=== PATIENT | female | born 1970 | race Hispanic/Latino ===

== ENCOUNTER 2017-10-07 00:50 | Emergency (ER) | payer BC, OTHER ==
[2017-10-07 01:14] LABS: #Basophils 0.1 thou/uL (0.0-0.2); #Eosinphils 0.1 thou/uL (0.0-0.7); #Lymphocytes 3.7 thou/uL (1.20-3.40); #Monocytes 0.9 thou/uL (0.11-0.59); %Eosinophils 1.1 % (0.0-10.0); %Lymphocytes 26.8 % (21.0-51.0); %Monocytes 6.2 % (0.0-10.0); %Neutrophils 64.9 % (42.0-75.0); Hemoglobin 14.8 g/dL (12.0-16.0); Mean Corpuscular HGB CONC 34.8 g/dL (32.0-36.0); Mean Corpuscular Hemoglobin 29.1 pg (27.0-31.0); Mean Corpuscular Volume 83.7 fl (81.0-99.0); Mean Platelet Volume 6.9 fL (7.4-10.4); Platelet Count 298 thou/uL (130-400); RBC Distribution Width 12.1 % (11.5-14.5); Red Blood Cell (RBC) Count 5.07 mill/uL (4.20-5.40); White Blood Cell (WBC) Count 13.9 thou/uL (4.8-10.8)
[2017-10-07] MEDS ORDERED: Ondansetron HCl/PF 4 MG/2 ML Vial ONE (01:19)
[2017-10-07 01:31] LABS: ALT (SGPT) 10 U/L (8-55); AST (SGOT) 7 U/L (5-34); Albumin 3.7 g/dL (3.5-5.0); Alkaline Phosphatase 93 U/L (40-150); Anion Gap 13 mmol/L (10-20); BUN (Urea Nitrogen) 17 mg/dL (7.0-18.7); Bilirubin, Total 0.3 mg/dL (0.2-1.2); CK (CPK) 11 U/L (29-168); Calc. Creatinine Clearance 0 mL/min (70-130); Calcium 9.9 mg/dL (7.8-10.44); Carbon Dioxide 27 mmol/L (22-29); Chloride 100 mmol/L (98-107); Estimated GFR-MDRD 73; Globulin 3.9 g/dL (2.4-3.5); Glucose 237 mg/dL (70-105); Protein, Total 7.6 g/dL (6.0-8.3); Sodium 136 mmol/L (136-145)
[2017-10-07 01:36] LABS: CKMB 0.4 ng/mL (0-6.6); Troponin I Less than 0.010 ng/mL (< 0.028)
[2017-10-07] MEDS ORDERED: Acetaminophen 500 MG TAB ONE (01:42)
[2017-10-07] MEDS ORDERED: Morphine 4 MG/ML VIAL ONE (01:42)
[2017-10-07] MEDS ORDERED: Aspirin 325 MG TAB ONE (01:42)
[2017-10-07 03:28] LABS: Troponin I Less than 0.010 ng/mL (< 0.028)
[2017-10-07] MEDS ORDERED: Ketorolac Tromethamine 30 MG/ML VIAL ONE (04:47)
--- NOTE | 2017-10-07 11:58 | RAD ---
TWO VIEWS CHEST: HISTORY: Chest pain and discomfort. Diarrhea. FINDINGS: PA and lateral views of the chest are obtained. The lungs are well aerated. No evidence of active i ntrathoracic disease is seen. No evidence of effusions, pneumonia, or pneumothorax is seen. IMPRESSION: Normal 2 views chest. POS: [facility]
--- NOTE | 2017-11-23 14:24 | EKG ---
Test Reason : Blood Pressure : / mmHG Vent. Rate : 090 BPM Atrial Rate : 090 BPM P-R Int : 138 ms QRS Dur : 080 ms QT Int : 368 ms P-R-T Axes : 050 000 030 degrees QTc Int : 450 ms Normal sinus rhythm Minimal voltage criteria for LVH, may be normal variant Cannot rule out Anterior infarct , age undetermined Abnormal ECG Confirmed by TERA SAWYER, ZEESHAN Man ([id number]), online editor DOMENICA GROVES ([id number]) on 11/23/2017 2:23:37 PM Referred By: Confirmed By:ZEESHAN HALEY MD
== END 2017-10-07 05:08 | disposition home or self-care (01) ==
LOC: ERS 00:50
DX: R07.89 Other chest pain (principal); R19.7 Diarrhea, unspecified; R11.0 Nausea; E11.9 Type 2 diabetes mellitus without complications; I10 Essential (primary) hypertension
CPT/HCPCS: 36415; 36416; 71046; 80053; 82553; 83690; 84484; 85025; 93005; 96361; 96374; 96375; J1885; J2270; J2405

== ENCOUNTER 2018-06-16 05:07 | Observation (INO) | payer BC ==
[2018-06-16 06:24] LABS: #Basophils 0.1 thou/uL (0.0-0.2); #Eosinphils 0.2 thou/uL (0.0-0.7); #Lymphocytes 3.1 thou/uL (1.20-3.40); #Monocytes 0.7 thou/uL (0.11-0.59); %Basophils 1.1 % (0.0-1.0); %Eosinophils 1.4 % (0.0-10.0); %Lymphocytes 25.5 % (21.0-51.0); %Monocytes 5.4 % (0.0-10.0); %Neutrophils 66.6 % (42.0-75.0); Hemoglobin 13.5 g/dL (12.0-16.0); Mean Corpuscular HGB CONC 34.3 g/dL (32.0-36.0); Mean Corpuscular Volume 84.6 fL (78.0-98.0); Mean Platelet Volume 7.3 fL (7.4-10.4); Platelet Count 291 thou/uL (130-400); RBC Distribution Width 11.8 % (11.5-14.5); Red Blood Cell (RBC) Count 4.66 mill/uL (4.20-5.40)
[2018-06-16] MEDS ORDERED: Morphine 4 MG/ML VIAL ONE (06:29)
[2018-06-16] MEDS ORDERED: Ondansetron PF 4 MG/2 ML Vial ONE (06:29)
[2018-06-16 06:59] LABS: ALT (SGPT) 15 U/L (8-55); AST (SGOT) 18 U/L (5-34); Albumin 3.6 g/dL (3.5-5.0); Alkaline Phosphatase 84 U/L (40-150); Anion Gap 13 mmol/L (10-20); BUN (Urea Nitrogen) 20 mg/dL (7.0-18.7); Bilirubin, Total 0.5 mg/dL (0.2-1.2); Calc. Creatinine Clearance 0 mL/min (70-130); Calcium 9.2 mg/dL (7.8-10.44); Carbon Dioxide 21 mmol/L (22-29); Chloride 104 mmol/L (98-107); Estimated GFR-MDRD 87; Globulin 3.9 g/dL (2.4-3.5); Glucose 220 mg/dL (70-105); Lipase 21 U/L (8-78); Potassium 3.8 mmol/L (3.5-5.1); Protein, Total 7.5 g/dL (6.0-8.3); Sodium 134 mmol/L (136-145)
[2018-06-16 07:15] LABS: Bilirubin Negative (Negative); Blood, Urine Negative (Negative); Clarity CLEAR (Clear); Glucose, Urine (Dipstick) 100 mg/dL (Negative); Leukocyte Negative (Negative); Nitrite Negative (Negative); Protein, Urine (Dipstick) Negative (Neg-Trace); Specific Gravity, Urine 1.029 (1.002-1.036)
[2018-06-16] MEDS ORDERED: ISOVUE-370 76%-LOCM 1 ML ONE (10:26)
[2018-06-16] MEDS ORDERED: Ketorolac Tromethamine 30 MG/ML VIAL ONE (11:12)
[2018-06-16] MEDS ORDERED: Labetalol HCl 100 MG/20 ML VIAL ONE (12:16)
[2018-06-16] MEDS ORDERED: Sodium Chloride 0.9% 1,000 ML IV SCH (14:00)
[2018-06-16] MEDS ORDERED: Acetaminophen 325 MG TAB PO PRN (14:53)
[2018-06-16] MEDS ORDERED: hydrALAZINE 20 MG/ML VIAL SLOW IVP PRN (14:54)
[2018-06-16] MEDS ORDERED: Dextrose 50% Abboject 50 ML SYRINGE SLOW IVP PRN (14:56)
[2018-06-16] MEDS ORDERED: Dextrose 5% in Water 1,000 ML IV PRN (14:56)
[2018-06-16] MEDS ORDERED: HumaLOG 300 UNITS/3 ML VIAL SC PRN (14:56)
[2018-06-16 15:35] VITALS: BMI 34.9
[2018-06-16] MEDS ORDERED: Acetaminophen 1,000 MG in Premix Bag 1 BAG IVPB PRN (15:41)
--- NOTE | 2018-06-16 16:12 | CT ---
PRELIMINARY REPORT/[facility]/EMERGENTY AFTER-HOURS PROCEDURE CT Abdomen and Pelvis With Intravenous Contrast EXAM DATE/TIME: 06/16/2018 6:31 AM CLINICAL HISTORY: 48 years old, female; Pain; Abdominal pain; Generalized; Patient HX: F48 presents to the ed C/O abdom inal pain, same as in 2009, that began at 0900. She took tylenol that did provide some relief. She fe ll asleep and the pain woke her up at midnight. PT reports having gallbladder surgery and a hysterectomy. PT reports having a hernia where her pain is present. Knma. TECHNIQUE: Axial computed tomography images of the abdomen and pelvis with intravenous contrast. Coronal reformatted images were created and reviewed. COMPARISON: No relevant prior studies available. FINDINGS: Lower thorax: The visualized portions of the lung bases are normal. ABDOMEN: Liver: There are no focal liver lesions identified. Gallbladder and bile ducts: There has been a cholecystectomy. Pancreas: The pancreas appears normal. No ductal dilatation. Spleen: The spleen is normal. Adrenals: The adrenal glands are normal. Kidneys and ureters: The kidneys appear normal. No hydronephrosis. Stomach and bowel: The stomach is normal. The duodenum is unremarkable. The colon is normal. There is dilatation of the small bowel to 3 cm with collapse and possible twisting of the mesentery suspiciou s for internal hernia resulting in partial small bowel obstruction. This may be superimposed on enter itis as there is wall thickening and fluid extending to the colon. Appendix: No evidence of appendicitis. PELVIS: Bladder: The bladder is normal. Reproductive: The uterus is not visualized, and may be atrophic or surgically absent. ABDOMEN and PELVIS: Intraperitoneal space: There is a small amount of free pelvic fluid present. Bones/joints: No acute fracture. No dislocation. Soft tissues: Unremarkable. Vasculature: Normal. No abdominal aortic aneurysm. Lymph nodes: Normal. No enlarged lymph nodes. IMPRESSION: There is dilatation of the small bowel to 3 cm with collapse and possible twisting of the mesentery s uspicious for internal hernia resulting in partial small bowel obstruction. This may be superimposed on enteritis as there is wall thickening and fluid extending to the colon. Thank you for allowing us to participate in the care of your patient. Dictated and Authenticated by: Jony Armando MD 06/16/2018 7:11 AM Central Time ([place] & [place]) FINAL REPORT ABDOMEN AND PELVIC CT SCAN WITH IV CONTRAST: EMERGENCY AFTER HOURS EXAM TIME: 6:33 a.m. DATE: 06/16/2018. FINDINGS: Abnormally dilated small bowel loops with minimal ascitic fluid with some twisting of the mesentery c oncerning for the possibility of an internal hernia resulting in partial small bowel obstruction. In addition, there is some minimal mucosal fold thickening and enhancement which may be part of this pr ocess, although the possibility of a coexistent enteritis is considered. No total high-grade obstruc tion with fluid extending throughout the small bowel and also into the colon. POS: [facility]
[2018-06-16] MEDS: Dextrose 5 % And 0.9 % NaCl 1,000 ML IV SCH (16:20)
[2018-06-16] MEDS: Morphine 2 MG/ML SYRINGE SLOW IVP PRN (16:20)
[2018-06-16] MEDS: Heparin 5,000 UNITS/ML VIAL SC SCH ×2 (16:20→21:00)
--- NOTE | 2018-06-16 16:24 | CON ---
DATE OF CONSULTATION: 06/16/2018 HISTORY OF PRESENT ILLNESS: Ms. Matt presents with abdominal pain, nausea, no vomiting. She has a history of midline incision for cholecystectomy in the late 1980s. She has had hysterectomy, coupl e of C-sections. She states that she thinks she has a hernia in her upper abdomen. Pain was describ ed as 8/10, and sharp. It is improved now. NG tube was recommended and placed in the ER, but she de manded that it be pulled out because it was so uncomfortable. She notes one previous obstruction timmy t resolved without surgery. PAST MEDICAL HISTORY: Includes type 2 diabetes, hypertension. PAST SURGICAL HISTORY: Cholecystectomy, , hysterectomy. MEDICINES TAKEN DAILY: Metformin and unknown antihypertensive medication. ALLERGIES: No known drug allergies. SOCIAL HISTORY: No smoking, alcohol or other drugs. REVIEW OF SYSTEMS: Ten system review of systems otherwise negative unless described above. PHYSICAL EXAMINATION: VITAL SIGNS: Pulse 79, respirations 18, temperature 97.3, blood pressure 151/79. HEENT: Sclerae are anicteric. Oropharynx clear. NECK: No lymphadenopathy. CHEST: Clear. HEART: Regular rate and rhythm. ABDOMEN: Soft. It is distended. It is diffusely, mildly tender without rebound. Well-healed midli ne incision without hernia. EXTREMITIES: No ischemia or edema to extremities. LABORATORY FINDINGS: White blood cell count is 12, hemoglobin 13. Sodium 134, potassium 3.8, creati nine 0.71. Urine is negative except for ketones. ASSESSMENT: Partial small-bowel obstruction. No nausea at present. She has bowel sounds on examina tion, suspect this will resolve without surgery. We will follow with you.
[2018-06-16] MEDS: Famotidine/PF 20 mg/2ml Vial SLOW IVP SCH (20:40)
--- NOTE | 2018-06-16 21:05 | HP ---
CHIEF COMPLAINT: Abdominal pain. HISTORY OF PRESENT ILLNESS: The patient is a 28-year-old female, who presents to the hospital with c omplaints of abdominal pain x1 day. The patient stated that last night around 9:00 p.m., she started having intense pain around her upper abdomen area. The patient stated that she tried to take a Tyle nol and rest; however, did not get any relief. The patient stated that her pain continued all night, so she decided to come in to the ER for further evaluation. The patient denied any nausea, vomiting or any fevers. The patient stated that she did have a bowel movement yesterday. The patient denies any sick contacts. The patient stated that this has happened to her two times in the past. The pat [place] stated that she was supposed to have hernia surgery this month since she does have an abdominal hernia, which has been giving her problems with meals and without meals. PAST MEDICAL HISTORY: 1. She has a history of diabetes. 2. Hypertension. 3. History of small bowel obstructions in the past. 4. Mild obesity. PAST SURGICAL HISTORY: The patient has had a cholecystectomy, has a hysterectomy, has also had C-sec tion x2. SOCIAL HISTORY: Denies any alcohol use, drug use or smoking history. ALLERGIES: She has got no known drug allergies. MEDICATIONS: Currently, she is on metformin 1000 mg twice a day and she does not take anything for h er blood pressure. PHYSICAL EXAMINATION: VITAL SIGNS: As of the following temperature of 97.3, 79, 18, 100% room air, 151/79. GENERAL: She is awake, alert, oriented x3, does not appear in any distress. CARDIOVASCULAR: S1, S2 present. No murmurs, rubs or gallops. ABDOMEN: Obese. Bowel sounds are present x2. Mild pain upon palpation to her right upper quadrant and left upper quadrant and epigastric area. LUNGS: Clear to auscultation, rhonchi, wheezes noted. EXTREMITIES: No edema. Pedal pulses are present x2, NEUROVASCULAR: No focal deficits noted. SKIN: Intact. LABORATORY DATA: Laboratory results are as following: Sodium of 134, potassium of 3.8, BUN of 20, c reatinine of 0.71, glucose is 220. Lactic acid is 1.6. LFTs are normal. Lipase is 21. White count of 12.0, hemoglobin of 13.5, hematocrit of 39.5, platelets of 291. The patient did have a CT abdome n and pelvis indicated bowel obstruction. However, I do not have that confirmed yet. I also looked to me that she had a significant amount of stool throughout her colon. ASSESSMENT AND PLAN: The patient is a very pleasant 48-year-old female who presents to the hospital with abdominal pain. 1. Abdominal pain secondary to bowel obstruction. The patient has had multiple abdominal surgeries and she also has hernia. She has also had bowel obstructions in the past, which have been treated co nservatively. We will continue patient on some D5 normal saline. Also, keep her n.p.o. Surgery has been consulted. The patient has no nausea, vomiting, so no plans for an NG tube. 2. Diabetes. Her sugars have been high, we will put on sliding scale and insulin, also check Accu-C heks before meals and bedtime, but also check a hemoglobin A1c. 3. Hypertension. The patient does not indicate any medications. We will put her on some p.r.n. for now, maybe upon discharge, we will add some blood pressure medications. 4. Deep venous thrombosis prophylaxis. We will put patient on subcu heparin.
[2018-06-17] MEDS: Dextrose 5 % And 0.9 % NaCl 1,000 ML IV SCH ×3 (02:15→14:12)
[2018-06-17] MEDS: Morphine 2 MG/ML SYRINGE SLOW IVP PRN ×3 (02:15→20:53)
[2018-06-17 06:15] LABS: #Basophils 0.1 thou/uL (0.0-0.2); #Eosinphils 0.2 thou/uL (0.0-0.7); #Lymphocytes 3.8 thou/uL (1.20-3.40); #Monocytes 0.5 thou/uL (0.11-0.59); #Neutrophils 3.6 thou/uL (1.40-6.50); %Lymphocytes 46.1 % (21.0-51.0); %Monocytes 6.3 % (0.0-10.0); %Neutrophils 44.6 % (42.0-75.0); Hemoglobin 11.8 g/dL (12.0-16.0); Mean Corpuscular HGB CONC 33.7 g/dL (32.0-36.0); Mean Corpuscular Hemoglobin 28.9 pg (27.0-31.0); Mean Corpuscular Volume 85.7 fL (78.0-98.0); Mean Platelet Volume 7.2 fL (7.4-10.4); Platelet Count 260 thou/uL (130-400); RBC Distribution Width 11.7 % (11.5-14.5); Red Blood Cell (RBC) Count 4.06 mill/uL (4.20-5.40); White Blood Cell (WBC) Count 8.1 thou/uL (4.8-10.8)
[2018-06-17 06:16] LABS: Hemoglobin A1c 7.5 % (4.0-6.0)
[2018-06-17 06:34] LABS: Anion Gap 8 mmol/L (10-20); BUN (Urea Nitrogen) 10 mg/dL (7.0-18.7); Calc. Creatinine Clearance 132 mL/min (70-130); Calcium 8.5 mg/dL (7.8-10.44); Carbon Dioxide 26 mmol/L (22-29); Chloride 109 mmol/L (98-107); Estimated GFR-MDRD Greater than 90; Glucose 202 mg/dL (70-105); Potassium 3.9 mmol/L (3.5-5.1); Sodium 139 mmol/L (136-145)
--- NOTE | 2018-06-17 08:36 | PRG ---
DATE OF SERVICE: 06/17/2018 Ms. Matt is passing some gas overnight. PHYSICAL EXAMINATION: VITAL SIGNS: She is afebrile. Vital signs stable. ABDOMEN: Soft and she does have active bowel sounds now. ASSESSMENT: Partial small-bowel obstruction, likely resolving. Definitive test would be Gastrografi n small bowel follow through but without an NG tube that would be difficult for her. We had a discussion at the bedside about the next step that could involve her attempting to drink a G astrografin for the small bowel follow through versus just putting her on clear liquids and seeing ho w she does. Because she has good bowel sounds and her abdomen is soft and nontender now, I would pro bably just try her on a liquid diet. If she tolerates that, she can be discharged home tomorrow.
[2018-06-17] MEDS: Heparin 5,000 UNITS/ML VIAL SC SCH ×3 (08:42→20:54)
[2018-06-17] MEDS: Famotidine/PF 20 mg/2ml Vial SLOW IVP SCH ×2 (08:42→20:54)
--- NOTE | 2018-06-17 18:19 | PDOC.PN ---
- Subjective Encounter Start Date: 06/17/18 Encounter Start Time: 09:00 Subjective: pt up in bed tolerating oral fluids - Objective Resuscitation Status: Resuscitation Status FULL:Full Resuscitation Vital Signs & Weight: Vital Signs (12 hours) Temp Pulse Resp BP Pulse Ox 06/17/18 16:00 98.0 F 69 16 165/88 H 99 06/17/18 12:00 97.5 F L 68 16 158/81 H 98 06/17/18 08:00 97.8 F 64 16 138/82 99 Weight Weight 178 lb 12.8 oz I&O: 06/16/18 06/17/18 06/18/18 06:59 06:59 06:59 Intake Total 529 202 Balance 529 202 Result Diagrams: 06/17/18 05:43 06/17/18 05:43 Additional Labs: Accuchecks 06/17/18 06/17/18 06/17/18 16:21 11:20 05:35 POC Glucose 123 H 194 H 189 H 06/16/18 19:48 POC Glucose 136 H Phys Exam - Physical Examination Neck: no nodes, no JVD, supple, full ROM Respiratory: no wheezing, no rales, no rhonchi, wheezing present, clear to auscultation bilateral Cardiovascular: RRR, no significant murmur, no rub, gallop, irregular Gastrointestinal: soft, non-tender, no distention, positive bowel sounds Dx/Plan (1) Small bowel obstruction Code(s): K56.609 - UNSP INTESTNL OBST, UNSP TO PARTIAL VERSUS COMPLETE OBST Status: Acute (2) Diabetes Code(s): E11.9 - TYPE 2 DIABETES MELLITUS WITHOUT COMPLICATIONS Status: Acute (3) HTN (hypertension) Code(s): I10 - ESSENTIAL (PRIMARY) HYPERTENSION Status: Acute - Plan will start pt on her home meds -: possible discharge in am if pt tolerates oral well * . Review of Systems - Review of Systems Respiratory: negative: Cough, Dry, Shortness of Breath, Hemoptysis, SOB with Excertion, Pleuritic Pain, Sputum, Wheezing Cardiovascular: negative: chest pain, palpitations, orthopnea, paroxysmal nocturnal dyspnea, edema, light headedness, other Gastrointestinal: negative: Nausea, Vomiting, Abdominal Pain, Diarrhea, Constipation, Melena, Hematochezia, Other Genitourinary: negative: Dysuria, Frequency, Incontinence, Hematuria, Retention , Other - Medications/Allergies Allergies/Adverse Reactions: Allergies Allergy/AdvReac Type Severity Reaction Status Date / Time No Known Allergies Allergy Unverified 06/16/18 20:20 Medications: Current Medications Acetaminophen (Tylenol) 650 mg PO Q4H PRN PRN Reason: Headache/Fever/Mild Pain (1-3) Dextrose/Water (Dextrose 50%) 25 gm SLOW IVP PRN PRN PRN Reason: Hypoglycemia Famotidine (Pepcid) 20 mg SLOW IVP Q12HR [facility] Last Admin: 06/17/18 08:42 Dose: 20 mg Glucagon (Glucagon) 1 mg IM PRN PRN PRN Reason: Hypoglycemia Heparin Sodium (Porcine) (Heparin) 5,000 units SC TID [facility] Last Admin: 06/17/18 14:12 Dose: 5,000 units Hydralazine HCl (Apresoline) 5 mg SLOW IVP Q6H PRN PRN Reason: Blood Pressure Dextrose/Sodium Chloride (D5 0.9% Ns) 1,000 mls @ 50 mls/hr IV .Q20H [facility] Last Admin: 06/17/18 14:12 Dose: 1,000 mls Dextrose/Water (D5w) 1,000 mls @ 0 mls/hr IV .Q0M PRN PRN Reason: Hypoglycemia Insulin Human Lispro (Humalog) 0 units SC .MILD SLIDING SCALE PRN PRN Reason: Mild Correctional Scale Morphine Sulfate (Morphine) 2 mg SLOW IVP Q4H PRN PRN Reason: Mild-Moderate Pain (1-5) Last Admin: 06/17/18 08:41 Dose: 2 mg
[2018-06-17] MEDS: Simvastatin 20 MG TAB PO SCH (20:54)
[2018-06-18] MEDS: Famotidine/PF 20 mg/2ml Vial SLOW IVP SCH ×2 (08:36→21:24)
[2018-06-18] MEDS: Lisinopril 20 MG TAB PO SCH (08:36)
[2018-06-18] MEDS: Heparin 5,000 UNITS/ML VIAL SC SCH ×3 (08:37→21:24)
[2018-06-18] MEDS: Dextrose 5 % And 0.9 % NaCl 1,000 ML IV SCH (12:23)
--- NOTE | 2018-06-18 12:24 | PDOC.PN ---
- Subjective Encounter Start Date: 06/18/18 Encounter Start Time: 11:15 Subjective: pt up in bed states she feels a bit better -: tolerated clear liquids - Objective Resuscitation Status: 06/18/18 11:26 Resuscitation Status Routine Resuscitation Status: FULL: Full Resuscitation Vital Signs & Weight: Vital Signs (12 hours) Temp Pulse Resp BP BP Pulse Ox 06/18/18 08:36 143/80 H 06/18/18 08:00 98.2 F 74 16 143/80 H 98 06/18/18 03:51 97.6 F 63 16 144/82 H 95 Weight Weight 178 lb 12.8 oz I&O: 06/17/18 06/18/18 06/19/18 06:59 06:59 06:59 Intake Total 529 2302 Balance 529 2302 Result Diagrams: 06/17/18 05:43 06/17/18 05:43 Additional Labs: Accuchecks 06/18/18 06/17/18 06/17/18 05:17 19:34 16:21 POC Glucose 157 H 173 H 123 H 06/17/18 11:20 POC Glucose 194 H Phys Exam - Physical Examination Neck: no nodes, no JVD, supple, full ROM Respiratory: no wheezing, no rales, no rhonchi, wheezing present, clear to auscultation bilateral Cardiovascular: RRR, no significant murmur, no rub, gallop, irregular Gastrointestinal: soft, non-tender, no distention, positive bowel sounds Dx/Plan (1) Small bowel obstruction Code(s): K56.609 - UNSP INTESTNL OBST, UNSP TO PARTIAL VERSUS COMPLETE OBST Status: Acute (2) Diabetes Code(s): E11.9 - TYPE 2 DIABETES MELLITUS WITHOUT COMPLICATIONS Status: Acute (3) HTN (hypertension) Code(s): I10 - ESSENTIAL (PRIMARY) HYPERTENSION Status: Acute - Plan will advance diet per surgical recommedation -: continue iv fluids. -: pt's home medication started * . Review of Systems - Review of Systems Cardiovascular: negative: chest pain, palpitations, orthopnea, paroxysmal nocturnal dyspnea, edema, light headedness, other Gastrointestinal: Abdominal Pain Genitourinary: negative: Dysuria, Frequency, Incontinence, Hematuria, Retention , Other Musculoskeletal: negative: Neck Pain, Shoulder Pain, Arm Pain, Back Pain, Hand Pain, Leg Pain, Foot Pain, Other - Medications/Allergies Allergies/Adverse Reactions: Allergies Allergy/AdvReac Type Severity Reaction Status Date / Time No Known Allergies Allergy Unverified 06/16/18 20:20 Medications: Current Medications Acetaminophen (Tylenol) 650 mg PO Q4H PRN PRN Reason: Headache/Fever/Mild Pain (1-3) Last Admin: 06/18/18 05:39 Dose: 650 mg Dextrose/Water (Dextrose 50%) 25 gm SLOW IVP PRN PRN PRN Reason: Hypoglycemia Famotidine (Pepcid) 20 mg SLOW IVP Q12HR [facility] Last Admin: 06/18/18 08:36 Dose: 20 mg Glucagon (Glucagon) 1 mg IM PRN PRN PRN Reason: Hypoglycemia Heparin Sodium (Porcine) (Heparin) 5,000 units SC TID [facility] Last Admin: 06/18/18 08:37 Dose: 5,000 units Hydralazine HCl (Apresoline) 5 mg SLOW IVP Q6H PRN PRN Reason: Blood Pressure Dextrose/Sodium Chloride (D5 0.9% Ns) 1,000 mls @ 50 mls/hr IV .Q20H [facility] Last Admin: 06/17/18 14:12 Dose: 1,000 mls Dextrose/Water (D5w) 1,000 mls @ 0 mls/hr IV .Q0M PRN PRN Reason: Hypoglycemia Insulin Human Lispro (Humalog) 0 units SC .MILD SLIDING SCALE PRN PRN Reason: Mild Correctional Scale Lisinopril (Zestril) 20 mg PO QAM [facility] Last Admin: 06/18/18 08:36 Dose: 20 mg Morphine Sulfate (Morphine) 2 mg SLOW IVP Q4H PRN PRN Reason: Mild-Moderate Pain (1-5) Last Admin: 06/17/18 20:53 Dose: 2 mg Simvastatin (Zocor) 20 mg PO HS [facility] Last Admin: 06/17/18 20:54 Dose: 20 mg
--- NOTE | 2018-06-18 17:27 | PDOC.GSPN ---
Surgery Progress Note: Subj - Subjective Patient reports: bowel movement (and passing gas now), tolerating liquids well Surgery Progress Note: Obj - Vital signs Vital signs: Vital Signs - Most Recent Temp Pulse Resp BP Pulse Ox 98.2 F 70 18 158/86 H 99 06/18/18 12:00 06/18/18 12:00 06/18/18 12:00 06/18/18 12:00 06/18/18 12:00 - Physical Exam General: no distress Cardiovascular: regular rate and rhythm Respiratory: clear to auscultation Abdomen: soft, nondistended, positive bowel sounds Surgery Progress Note: Results - Labs Result Diagrams: 06/17/18 05:43 06/17/18 05:43 Lab results: Laboratory Results - last 24 hr 06/18/18 06/18/18 05:17 11:07 POC Glucose 157 H 190 H Surgery Progress Note: A/P - Problem (1) Small bowel obstruction Current Visit: Yes Code(s): K56.609 - UNSP INTESTNL OBST, UNSP TO PARTIAL VERSUS COMPLETE OBST Status: Acute - Plan Plan: Doing well on clears. Advance to full liquids Likely home tomorrow
[2018-06-18] MEDS: Simvastatin 20 MG TAB PO SCH (21:24)
[2018-06-19] MEDS: Lisinopril 20 MG TAB PO SCH (10:27)
[2018-06-19] MEDS: Famotidine/PF 20 mg/2ml Vial SLOW IVP SCH (10:28)
[2018-06-19] MEDS: Heparin 5,000 UNITS/ML VIAL SC SCH ×2 (10:31→16:14)
[2018-06-19 12:42] VITALS: BP 150/82; TEMP 97.7
--- NOTE | 2018-06-19 15:15 | DIS ---
DATE OF ADMISSION: 06/16/2018 DATE OF DISCHARGE: 06/19/2018 ADMITTING DIAGNOSES: 1. Small bowel obstruction. 2. Hypertension. 3. Diabetes mellitus type 2. DISCHARGE DIAGNOSES: 1. Small bowel obstruction. 2. Hypertension. 3. Diabetes mellitus type 2. PROCEDURES: None. CONDITION ON DISCHARGE: Improved. STAFF: Dr. Almanzar/efrain hospitalist. HOSPITAL COURSE: Today, the patient is doing well. She is tolerating regular diet. She is having bowel movements and passing gas. No abdominal cramping or pain. PHYSICAL EXAMINATION: VITAL SINGS: Stable. ABDOMEN: Soft, nontender, nondistended with active bowel sounds. ASSESSMENT: Resolved small bowel obstruction. PLAN: Discharge home. She can follow up with me in the office in a month. Resume all home meds. Job ID: [id number]
--- NOTE | 2018-06-19 15:16 | PDOC.PN ---
- Subjective Encounter Start Date: 06/19/18 Encounter Start Time: 11:15 Subjective: pt up in bed, moved her bowls and has been having flatus - Objective Resuscitation Status - Order Detail: 06/18/18 11:26 Resuscitation Status Routine Resuscitation Status: FULL: Full Resuscitation Vital Signs & Weight: Vital Signs (12 hours) Temp Pulse Resp BP BP BP Pulse Ox 06/19/18 12:00 97.7 F 65 16 150/82 H 100 06/19/18 10:27 145/92 H 06/19/18 08:00 97.8 F 68 16 136/71 100 06/19/18 03:56 98.1 F 72 16 150/74 H 98 Weight Weight 178 lb 12.8 oz I&O: 06/18/18 06/19/18 06/20/18 06:59 06:59 06:59 Intake Total 2302 2143 10 Balance 2302 2143 10 Result Diagrams: 06/17/18 05:43 06/17/18 05:43 Additional Labs: Accuchecks 06/19/18 06/19/18 06/18/18 11:43 05:25 21:18 POC Glucose 136 H 128 H 102 06/18/18 16:09 POC Glucose 195 H Phys Exam - Physical Examination Neck: no nodes, no JVD, supple, full ROM Respiratory: no wheezing, no rales, no rhonchi, wheezing present, clear to auscultation bilateral Cardiovascular: RRR, no significant murmur, no rub, gallop, irregular Gastrointestinal: soft, non-tender, no distention, positive bowel sounds Dx/Plan (1) Small bowel obstruction Code(s): K56.609 - UNSP INTESTNL OBST, UNSP TO PARTIAL VERSUS COMPLETE OBST Status: Acute (2) Diabetes Code(s): E11.9 - TYPE 2 DIABETES MELLITUS WITHOUT COMPLICATIONS Status: Acute (3) HTN (hypertension) Code(s): I10 - ESSENTIAL (PRIMARY) HYPERTENSION Status: Acute - Plan pt's abdomen pain has improved -: tolerating oral meals well -: discharge if ok with surgery * . Review of Systems - Review of Systems Cardiovascular: negative: chest pain, palpitations, orthopnea, paroxysmal nocturnal dyspnea, edema, light headedness, other Gastrointestinal: negative: Nausea, Vomiting, Abdominal Pain, Diarrhea, Constipation, Melena, Hematochezia, Other Genitourinary: negative: Dysuria, Frequency, Incontinence, Hematuria, Retention , Other - Medications/Allergies Allergies/Adverse Reactions: Allergies Allergy/AdvReac Type Severity Reaction Status Date / Time No Known Allergies Allergy Unverified 06/16/18 20:20 Medications: Current Medications Acetaminophen (Tylenol) 650 mg PO Q4H PRN PRN Reason: Headache/Fever/Mild Pain (1-3) Last Admin: 06/18/18 05:39 Dose: 650 mg Dextrose/Water (Dextrose 50%) 25 gm SLOW IVP PRN PRN PRN Reason: Hypoglycemia Famotidine (Pepcid) 20 mg SLOW IVP Q12HR [facility] Last Admin: 06/19/18 10:28 Dose: 20 mg Glucagon (Glucagon) 1 mg IM PRN PRN PRN Reason: Hypoglycemia Heparin Sodium (Porcine) (Heparin) 5,000 units SC TID [facility] Last Admin: 06/19/18 10:31 Dose: Not Given Hydralazine HCl (Apresoline) 5 mg SLOW IVP Q6H PRN PRN Reason: Blood Pressure Dextrose/Water (D5w) 1,000 mls @ 0 mls/hr IV .Q0M PRN PRN Reason: Hypoglycemia Insulin Human Lispro (Humalog) 0 units SC .MILD SLIDING SCALE PRN PRN Reason: Mild Correctional Scale Lisinopril (Zestril) 20 mg PO QAM [facility] Last Admin: 06/19/18 10:27 Dose: 20 mg Morphine Sulfate (Morphine) 2 mg SLOW IVP Q4H PRN PRN Reason: Mild-Moderate Pain (1-5) Last Admin: 06/17/18 20:53 Dose: 2 mg Simvastatin (Zocor) 20 mg PO HS [facility] Last Admin: 06/18/18 21:24 Dose: 20 mg Sodium Chloride (Flush - Normal Saline) 10 ml IVF PRN PRN PRN Reason: Saline Flush Last Admin: 06/18/18 21:24 Dose: 10 ml
== END 2018-06-19 17:29 | disposition home or self-care (01) ==
LOC: ERS 05:07 → ERHOLD 10:19 → ONC 13:44
PROVIDERS: ADMIT Internal Medicine; ATTEND Internal Medicine
DX: K56.600 Partial intestinal obstruction, unspecified as to cause (principal); E11.9 Type 2 diabetes mellitus without complications; I10 Essential (primary) hypertension; E66.9 Obesity, unspecified; Z68.34 Body mass index [BMI] 34.0-34.9, adult; Z79.84 Long term (current) use of oral hypoglycemic drugs; Z79.899 Other long term (current) drug therapy; Z98.890 Other specified postprocedural states
CPT/HCPCS: 36415; 36416; 74177; 80048; 80053; 81003; 83036; 83605; 83690; 85025; 90471; 90686; 96361; 96374; 96375; 96376; G0008; G0378; J0131; J1644; J1885; J2270; J2405; S0028

== ENCOUNTER 2018-10-20 14:27 | Emergency (ER) | payer BC ==
--- NOTE | 2018-10-20 15:15 | RAD ---
RIGHT KNEE 4 VIEWS: Date: 10/20/18 HISTORY: Right leg pain. FINDINGS: There are no signs of fracture, dislocation, or joint effusion. No significant arthritic change. IMPRESSION: No acute findings. POS: [facility]
== END 2018-10-20 15:52 | disposition home or self-care (01) ==
LOC: ERS 14:27
DX: S86.811A Strain of other muscle(s) and tendon(s) at lower leg level, right leg, initial encounter (principal); I10 Essential (primary) hypertension; E11.9 Type 2 diabetes mellitus without complications; Z79.899 Other long term (current) drug therapy; Z79.84 Long term (current) use of oral hypoglycemic drugs; W19.XXXA Unspecified fall, initial encounter

== ENCOUNTER 2019-03-07 12:44 | Outpatient (CLI) | payer BC | END 2019-03-07 12:45 | disposition home or self-care (01) | LOC: DTY/OP 12:44 | PROVIDERS: ATTEND Surgery | DX: E66.01 Morbid (severe) obesity due to excess calories (principal) | CPT/HCPCS: 97802 ==

== ENCOUNTER 2019-04-08 15:21 | Outpatient (CLI) | payer BC | END 2019-04-08 15:22 | disposition home or self-care (01) | LOC: DTY/OP 15:21 | PROVIDERS: ATTEND Family Medicine | DX: E66.01 Morbid (severe) obesity due to excess calories (principal) | CPT/HCPCS: 97802 ==

== ENCOUNTER 2019-05-12 15:33 | Outpatient (CLI) | payer BC | END 2019-05-12 15:34 | disposition home or self-care (01) | LOC: DTY/OP 15:33 | PROVIDERS: ATTEND Family Medicine | DX: E66.01 Morbid (severe) obesity due to excess calories (principal) | CPT/HCPCS: 97802 ==

== ENCOUNTER 2019-06-10 15:26 | Outpatient (CLI) | payer BC | END 2019-06-10 15:27 | disposition home or self-care (01) | LOC: DTY/OP 15:26 | PROVIDERS: ATTEND Surgery | DX: E66.01 Morbid (severe) obesity due to excess calories (principal) | CPT/HCPCS: 97802 ==

== ENCOUNTER 2019-07-07 07:49 | Outpatient (CLI) | payer BC ==
--- NOTE | 2019-07-07 16:25 | RAD ---
Chest 2 views HISTORY: Preop. COMPARISON: 10/07/2017. FINDINGS: Cardiac silhouette and pulmonary vasculature are unremarkable. Mediastinum is midline. No c onfluent airspace consolidation, pneumothorax, or pleural fluid. IMPRESSION: Normal exam.
[2019-07-07 17:15] LABS: #Basophils 0.1 thou/uL (0.0-0.2); #Eosinphils 0.2 thou/uL (0.0-0.7); #Lymphocytes 4.7 thou/uL (1.20-3.40); #Monocytes 0.7 thou/uL (0.11-0.59); #Neutrophils 7.3 thou/uL (1.40-6.50); %Basophils 0.9 % (0.0-1.0); %Eosinophils 1.5 % (0.0-10.0); %Lymphocytes 36.2 % (21.0-51.0); %Neutrophils 56.4 % (42.0-75.0); Hemoglobin 14.3 g/dL (12.0-16.0); Mean Corpuscular HGB CONC 34.4 g/dL (32.0-36.0); Mean Corpuscular Hemoglobin 28.9 pg (27.0-31.0); Mean Corpuscular Volume 84.1 fL (78.0-98.0); Mean Platelet Volume 7.8 fL (7.4-10.4); Platelet Count 305 thou/uL (130-400); RBC Distribution Width 11.7 % (11.5-14.5); Red Blood Cell (RBC) Count 4.93 mill/uL (4.20-5.40)
[2019-07-07 17:22] LABS: Hemoglobin A1c 12.6 % (4.0-6.0)
[2019-07-07 17:46] LABS: ALT (SGPT) 24 U/L (8-55); AST (SGOT) 15 U/L (5-34); Albumin 3.9 g/dL (3.5-5.0); Alkaline Phosphatase 109 U/L (40-110); Anion Gap 10 mmol/L (10-20); BUN (Urea Nitrogen) 15 mg/dL (7.0-18.7); Bilirubin, Total 0.5 mg/dL (0.2-1.2); Calc. Creatinine Clearance 0 mL/min (70-130); Calcium 9.5 mg/dL (7.8-10.44); Carbon Dioxide 27 mmol/L (22-29); Chloride 101 mmol/L (98-107); Estimated GFR-MDRD 89; Globulin 3.8 g/dL (2.4-3.5); Glucose 137 mg/dL (70-105); Protein, Total 7.7 g/dL (6.0-8.3); Sodium 135 mmol/L (136-145)
== END 2019-07-07 07:50 | disposition home or self-care (01) ==
LOC: LABBT 07:49
PROVIDERS: ATTEND Surgery
DX: Z01.818 Encounter for other preprocedural examination (principal); E66.01 Morbid (severe) obesity due to excess calories
CPT/HCPCS: 71046; 80053; 83036; 85025; 93005; 93010

== ENCOUNTER 2019-07-07 16:15 | Inpatient (IN) | payer BC ==
[2019-07-10] MEDS ORDERED: Fentanyl 100 MCG/2 ML VIAL ONE ×4 (08:09→12:03)
[2019-07-10] MEDS ORDERED: Midazolam HCl 2 mg/2 ml Vial ONE (08:11)
[2019-07-10] MEDS ORDERED: Ketorolac Tromethamine 30 MG/ML VIAL ONE (08:12)
[2019-07-10] MEDS ORDERED: Heparin 5,000 UNITS/ML VIAL ONE (08:12)
[2019-07-10] MEDS ORDERED: Lidocaine 1% w/Epinephrine 1:100K 20 ML VIAL ONE (08:23)
[2019-07-10] MEDS ORDERED: Bupivacaine 0.25% HCL 30 ML VIAL ONE (08:23)
[2019-07-10] MEDS ORDERED: Ondansetron PF 4 MG/2 ML Vial IVP PRN ×2 (11:44→13:00)
[2019-07-10] MEDS ORDERED: diphenhydrAMINE 25 MG CAP PO PRN (11:44)
[2019-07-10] MEDS ORDERED: Promethazine HCl 25 MG/ML VIAL IM PRN ×2 (11:44)
[2019-07-10] MEDS ORDERED: Promethazine HCl 25 MG/ML VIAL SLOW IVP PRN (11:44)
[2019-07-10] MEDS ORDERED: Ondansetron HCl/PF 4 MG/2 ML Vial IVP PRN (11:44)
[2019-07-10] MEDS ORDERED: Zolpidem Tartrate 5 MG TAB PO PRN (11:44)
[2019-07-10] MEDS ORDERED: Naloxone HCl 0.4 mg/ml Vial IV PRN (11:44)
[2019-07-10] MEDS ORDERED: fentaNYL Citrate/PF 2,000 MCG in Sodium Chloride 0.9% 60 ML IV PRN (11:44)
[2019-07-10] MEDS ORDERED: diphenhydrAMINE 50 MG/ML VIAL IVP PRN ×2 (11:44→13:00)
[2019-07-10] MEDS ORDERED: diphenhydrAMINE 50 MG/ML VIAL IM PRN (11:44)
[2019-07-10] MEDS ORDERED: Communication Order-Pharmacy FS SCH (11:45)
[2019-07-10] MEDS ORDERED: HumaLOG 300 UNITS/3 ML VIAL SC PRN (13:00)
[2019-07-10] MEDS ORDERED: hydrALAZINE 20 MG/ML VIAL SLOW IVP PRN (13:00)
[2019-07-10] MEDS ORDERED: Dextrose 5% in Water 1,000 ML IV PRN (13:00)
[2019-07-10] MEDS ORDERED: Hydrocodone-Acetamin 15 ML UDCUP PO PRN (13:00)
[2019-07-10] MEDS ORDERED: Dextrose 50% Abboject 50 ML SYRINGE SLOW IVP PRN (13:00)
[2019-07-10] MEDS: Promethazine HCl 25 MG/ML VIAL IM PRN ×3 (13:32→21:57)
[2019-07-10] MEDS: Sodium Chloride 0.9% 1,000 ML IV SCH ×2 (13:32→21:29)
[2019-07-10] MEDS: Acetaminophen 1,000 MG in Premix Bag 1 BAG IVPB SCH ×2 (13:34→19:46)
[2019-07-10] MEDS ORDERED: Rocuronium Bromide 10 MG/ML (10ML VIAL) ONE (13:44)
[2019-07-10] MEDS ORDERED: Lidocaine 1% PF 5 ML VIAL ONE (13:44)
[2019-07-10] MEDS ORDERED: Glycopyrrolate 0.2 MG/ML 5 ML SYRINGE ONE (13:44)
[2019-07-10] MEDS ORDERED: Esmolol 100 MG/10 ML VIAL ONE (13:44)
[2019-07-10] MEDS ORDERED: Ondansetron PF 4 MG/2 ML Vial ONE (13:44)
[2019-07-10] MEDS ORDERED: PROPOFOL 200 MG/20 ML VIAL ONE (13:44)
[2019-07-10 14:25] VITALS: BMI 35.7
--- NOTE | 2019-07-10 17:51 | OP ---
DATE OF PROCEDURE: 07/10/2019 PREOPERATIVE DIAGNOSES: 1. Morbid obesity with a body mass index of 36. 2. Diabetes mellitus, type 2. 3. Hypertension. 4. Sleep apnea. 5. Hyperlipidemia. POSTOPERATIVE DIAGNOSES: 1. Morbid obesity with a body mass index of 36. 2. Diabetes mellitus, type 2. 3. Hypertension. 4. Sleep apnea. 5. Hyperlipidemia. PROCEDURE PERFORMED: Laparoscopic sleeve gastrectomy with Thayer staple line reinforcements and 38-[place]el[place] bougie. ANESTHESIA: General. ESTIMATED BLOOD LOSS: 50 mL. COMPLICATIONS: None. SPECIMEN: None. FINDINGS: There were some previous adhesions in the upper midline incision, that were taken down sharply without injury. DESCRIPTION OF PROCEDURE: The patient was taken to the operating room and laid supine on the operating room table. After general anesthetic was obtained, arms and legs were double strapped to bariatric table. The abdomen was prepped and draped in a sterile fashion. Left subcostal 5 mm Optiview trocar was placed in usual fashion. High-flow pneumoperitoneum was obtained. Left and right abdominal 12 mm ports as well as a right subcostal 5 mm port were all placed under direct visualization. Additional 5 mm port had to be placed in the right lower abdomen to take down some adhesions to the midline. There was no injury to any intraabdominal structures during the lysis of adhesions. A 5 mm incision was made at the xiphoid, and Shelly was used to raise the liver off the GE junction. The short gastrics were taken down from mid body of the stomach to left braden of the diaphragm using LigaSure. The short gastrics were taken down to a distance of 6 cm proximal to the pylorus using LigaSure. The angle of His, posterior fundus, and left braden were completely dissected. There was no hiatal hernia. OG tube was removed, and 38 bougie was brought in, and its tip was left in the antrum of the stomach. Multiple loads of an [place] stapling device were used to perform the sleeve. The first was fired up at a distance of 6 cm to the pylorus angled up towards the incisura. Care was taken to avoid being too close to incisura. Multiple loads were then fired up along the bougie. Stomach was completely transected at the angle of His. The stomach was removed from the left abdominal incision. This fascial defect was closed using GraNee needle 0 Vicryl tie. EGD scope was passed through esophagus and stomach to the level of duodenum without obstruction or stricture. There was no evidence of involvement of the GE junction with the staple line. There was no air leakage or bleeding along the staple line. EGD scope was used to decompress the stomach. It was pulled and removed. All port sites were infiltrated using local anesthetic. The Shelly was removed under direct visualization without injury. Pneumoperitoneum was let down. The Vicryl was used to close the fascial defect from the left abdominal incision, and all incisions were irrigated and closed using 4-0 Monocryl and Dermabond. The patient was sent to Recovery in stable condition. All instrument counts, needle counts, and lap counts were correct. Job ID: [id number]
[2019-07-10] MEDS ORDERED: Enoxaparin Sodium 40 MG/0.4 ML SYRINGE SC SCH (21:00)
[2019-07-11] MEDS ORDERED: Melatonin 3 MG TAB PO SCH (00:15)
[2019-07-11] MEDS: Acetaminophen 1,000 MG in Premix Bag 1 BAG IVPB SCH ×2 (01:42→08:53)
[2019-07-11] MEDS: Sodium Chloride 0.9% 1,000 ML IV SCH ×2 (04:09→12:24)
[2019-07-11 05:38] LABS: #Basophils 0.1 thou/uL (0.0-0.2); #Lymphocytes 4.4 thou/uL (1.20-3.40); #Monocytes 0.7 thou/uL (0.11-0.59); #Neutrophils 6.9 thou/uL (1.40-6.50); %Basophils 0.6 % (0.0-1.0); %Eosinophils 0.3 % (0.0-10.0); %Lymphocytes 36.5 % (21.0-51.0); %Monocytes 5.4 % (0.0-10.0); %Neutrophils 57.2 % (42.0-75.0); Hemoglobin 12.1 g/dL (12.0-16.0); Mean Corpuscular Hemoglobin 28.6 pg (27.0-31.0); Mean Platelet Volume 7.5 fL (7.4-10.4); Platelet Count 262 thou/uL (130-400); RBC Distribution Width 11.6 % (11.5-14.5); Red Blood Cell (RBC) Count 4.23 mill/uL (4.20-5.40); White Blood Cell (WBC) Count 12.1 thou/uL (4.8-10.8)
[2019-07-11 05:59] LABS: Anion Gap 10 mmol/L (10-20); BUN (Urea Nitrogen) 7 mg/dL (7.0-18.7); Calc. Creatinine Clearance 136 mL/min (70-130); Calcium 8.3 mg/dL (7.8-10.44); Carbon Dioxide 26 mmol/L (22-29); Chloride 104 mmol/L (98-107); Estimated GFR-MDRD Greater than 90; Glucose 137 mg/dL (70-105); Potassium 3.6 mmol/L (3.5-5.1); Sodium 136 mmol/L (136-145)
[2019-07-11] MEDS ORDERED: Pantoprazole 40 MG VIAL IVP SCH (09:00)
[2019-07-11] MEDS ORDERED: Lisinopril 20 MG TAB PO SCH (09:00)
[2019-07-11] MEDS ORDERED: FLU VACC QS2019-20(6MOS UP)/PF 60 MCG/0.5 ML SYRINGE IM ONE (09:00)
[2019-07-11 16:19] VITALS: BP 148/84; TEMP 97.9
--- NOTE | 2019-07-12 02:58 | DIS ---
DATE OF ADMISSION: 07/10/2019 DATE OF DISCHARGE: 07/11/2019 ADMISSION DIAGNOSES: 1. Morbid obesity. 2. Diabetes mellitus. 3. Hypertension. DISCHARGE DIAGNOSES: 1. Morbid obesity. 2. Diabetes mellitus. 3. Hypertension. PROCEDURES: Sleeve gastrectomy by Dr. Almanzar without complication. CONDITION ON DISCHARGE: Improved. HOSPITAL COURSE: On postop day 1, the patient is doing well. She is having minimal nausea. She is sipping on liquids without difficulty. She is being discharged home. Prescriptions for Lortab elixir, Zofran, and pantoprazole already sent to her pharmacy. She is to follow up with me in the office in 2 weeks. Job ID: [id number]
== END 2019-07-11 16:33 | disposition home or self-care (01) | DRG 621 ==
LOC: SURG A 07-10 07:18 → EDSTATUS 07-10 16:15
PROVIDERS: ADMIT Surgery; ATTEND Surgery
PROC: 0DB64Z3 Excision of Stomach, Percutaneous Endoscopic Approach, Vertical (ICD-10-PCS; principal; 2019-07-10)
PROC: 0DJ08ZZ Inspection of Upper Intestinal Tract, Via Natural or Artificial Opening Endoscopic (ICD-10-PCS; 2019-07-10)
DX: E66.01 Morbid (severe) obesity due to excess calories (principal); E78.00 Pure hypercholesterolemia, unspecified; E11.9 Type 2 diabetes mellitus without complications; G47.30 Sleep apnea, unspecified; E78.5 Hyperlipidemia, unspecified; I10 Essential (primary) hypertension; Z90.49 Acquired absence of other specified parts of digestive tract; Z90.710 Acquired absence of both cervix and uterus; Z68.36 Body mass index [BMI] 36.0-36.9, adult; Z79.84 Long term (current) use of oral hypoglycemic drugs; Z79.899 Other long term (current) drug therapy
CPT/HCPCS: 36415; 36416; 71046; 80048; 80053; 83036; 85025; 88307; 88312; 90471; 90686; 93005; C9113; G0008; J0131; J0690; J1644; J1650; J1885; J2001; J2250; J2405; J2550; J2704; J3010; S0020

== ENCOUNTER 2021-12-02 07:37 | Emergency (ER) | payer OTHER ==
[2021-12-02 08:52] LABS: #Basophils 0.1 thou/uL (0.0-0.2); #Eosinphils 0.2 thou/uL (0.0-0.7); #Lymphocytes 2.6 thou/uL (1.20-3.40); #Monocytes 0.6 thou/uL (0.11-0.59); %Eosinophils 2.6 % (0.0-10.0); %Lymphocytes 35.1 % (21.0-51.0); %Monocytes 7.8 % (0.0-10.0); %Neutrophils 53.4 % (42.0-75.0); Hemoglobin 13.2 g/dL (12.0-16.0); Mean Corpuscular HGB CONC 32.8 g/dL (32.0-36.0); Mean Corpuscular Hemoglobin 29.8 pg (27.0-31.0); Mean Corpuscular Volume 90.7 fL (78.0-98.0); Platelet Count 273 thou/uL (130-400); RBC Distribution Width 11.4 % (11.5-14.5); Red Blood Cell (RBC) Count 4.43 mill/uL (4.20-5.40); White Blood Cell (WBC) Count 7.5 thou/uL (4.8-10.8)
[2021-12-02] MEDS ORDERED: Morphine 4 MG/ML VIAL ONE (08:57)
[2021-12-02] MEDS ORDERED: Ondansetron PF 4 MG/2 ML Vial ONE (08:57)
[2021-12-02 09:01] LABS: BHCG - Serum POSITIVE (NEGATIVE); Pregs Control Background? CLEAR/WHITE (CLR/WHITE); Pregs Control Bar Appear? YES (CONTROL BAR)
[2021-12-02 09:02] LABS: ALT (SGPT) 20 U/L (8-55); AST (SGOT) 18 U/L (5-34); Albumin 3.5 g/dL (3.5-5.0); Alkaline Phosphatase 88 U/L (40-110); Anion Gap 11 mmol/L (10-20); BUN (Urea Nitrogen) 15 mg/dL (9.8-20.1); Bilirubin, Total 0.3 mg/dL (0.2-1.2); Calc. Creatinine Clearance 0 mL/min (70-130); Calcium 8.8 mg/dL (7.8-10.44); Carbon Dioxide 28 mmol/L (22-29); Chloride 104 mmol/L (98-107); Globulin 3.2 g/dL (2.4-3.5); Glucose 186 mg/dL (70-105); Lipase 22 U/L (8-78); Potassium 3.9 mmol/L (3.5-5.1); Protein, Total 6.7 g/dL (6.0-8.3); Sodium 139 mmol/L (136-145)
[2021-12-02] MEDS ORDERED: GASTROGRAFIN 30 ML BOT ONE (09:48)
[2021-12-02] MEDS ORDERED: Iopamidol-370 76% 500 ML 1 ML ONE (09:48)
[2021-12-02] MEDS ORDERED: Ketorolac Tromethamine 30 MG/ML VIAL ONE (11:10)
[2021-12-02] MEDS ORDERED: Dicyclomine 20 MG/2 ML VIAL ONE (11:53)
[2021-12-02] MEDS ORDERED: Famotidine/PF 20 mg/2ml Vial ONE (11:53)
== END 2021-12-02 12:00 | disposition home or self-care (01) ==
LOC: ERS 07:37
DX: O09.511 Supervision of elderly primigravida, first trimester (principal); O99.891 Other specified diseases and conditions complicating pregnancy; R10.12 Left upper quadrant pain; R10.32 Left lower quadrant pain; O99.411 Diseases of the circulatory system complicating pregnancy, first trimester; I51.7 Cardiomegaly; O24.311 Unspecified pre-existing diabetes mellitus in pregnancy, first trimester; O10.911 Unspecified pre-existing hypertension complicating pregnancy, first trimester; Z3A.01 Less than 8 weeks gestation of pregnancy; Z79.84 Long term (current) use of oral hypoglycemic drugs; Z79.899 Other long term (current) drug therapy
CPT/HCPCS: 36415; 74177; 80053; 83690; 84484; 84702; 84703; 85025; 93005; 96372; 96374; 96375; J0500; J1885; J2270; J2405; Q9963; Q9967; S0028